=== PATIENT | male | born 1980 | race Caucasian/White ===

== ENCOUNTER 2018-11-03 10:36 | Emergency (ER) | payer BC ==
[2018-11-03] MEDS: KETOROLAC 30 MG INJ IV (11:41)
[2018-11-03 12:37] LABS: TROPONIN-I < 0.012 ng/ml (0.000-0.120)
== END 2018-11-03 14:15 | disposition home or self-care (01) ==
LOC: E/R 10:36
DX: R07.89 Other chest pain (principal)
CPT/HCPCS: 36415; 71045; 84484; 93005; 96374; 99285-25